=== PATIENT | female | born 1950 | race Caucasian/White ===

== ENCOUNTER 2022-07-05 11:54 | Emergency (ER) | payer MEDICARE ==
[~2022-07-05] VITALS: Ht 152.4 cm; Wt 79.4 kg
[2022-07-05] MEDS ORDERED: Percocet 5-3251 EACH PO (17:46)
== END 2022-07-05 18:50 | disposition home or self-care (01) ==
LOC: ER 11:54
DX: S82.302A Unspecified fracture of lower end of left tibia, initial encounter for closed fracture (principal); W11.XXXA Fall on and from ladder, initial encounter
CPT/HCPCS: 73590; 73610; 73630; A9270